=== PATIENT | male | born 1960 | race Caucasian/White ===

== ENCOUNTER 2018-09-06 18:54 | Emergency (ER) | payer BC, OTHER ==
[~2018-09-06] VITALS: Ht 180.3 cm; Wt 95.3 kg
--- NOTE | 2018-09-06 19:20 | NUR ---
Pt presented to the ER with a c/o L lower quadrant abd pain. Pt has a hx of diverticulitis. Pt stated that it is mild pain at the moment, but feels like it did when the diverticulitis flared up. Pt feels that if he waits the weekend to see his PMD it will get worse. Pt ambulated to the bathroom with a steady gait and a urine sample was obtained and sent to lab.
[2018-09-06 19:30] LABS: APPEARANCE,URINE Clear (CLEAR); BILIRUBIN,URINE Negative (NEGATIVE); BLOOD, URINE Trace-lysed Ery/uL (NEGATIVE); COLOR,URINE Yellow (YELLOW); KETONES,URINE 15 (NEGATIVE); LEUKOCYTE ESTERASE ,URINE Negative (NEGATIVE); NITRITE, URINE Negative (NEGATIVE); PROTEIN,URINE Negative (NEGATIVE); UGLUCOSE Negative (NEGATIVE); UROBILINOGEN,URINE 0.2 EU/dL (0.2)
[2018-09-06 19:36] LABS: BASOPHILS # (AUTO) 0.1 /CMM (0.0-0.2); BASOPHILS % (AUTO) 0.6 % (0.0-2.0); EOSINOPHILS % (AUTO) 1.8 % (0.0-6.0); HEMATOCRIT 48 % (39-51); LYMPHOCYTES # (AUTO) 1.8 /CMM (0.8-4.8); LYMPHOCYTES % (AUTO) 14.7 % (20.0-44.0); MEAN CORPUSCULAR HGB CONC 33 g/dl (31.0-36.0); MEAN CORPUSCULAR VOLUME 90 fL (80-96); MONOCYTES # (AUTO) 0.9 /CMM (0.1-1.30); MONOCYTES % (AUTO) 7.5 % (2.0-12.0); NEUTROPHILS # (AUTO) 9.1 /CMM (1.8-8.9); NEUTROPHILS % (AUTO) 75.4 % (43.0-81.0); PLATELET COUNT (AUTO) 272 /CMM (150-450); RED BLOOD CELL COUNT(AUTO) 5.35 MIL/uL (4.5-6.0); WHITE BLOOD COUNT (AUTO) 12.1 K/uL (4.3-11.0)
--- NOTE | 2018-09-06 19:40 | NUR ---
Pt left for CT via WC.
[2018-09-06 19:45] LABS: CALCIUM, SERUM 9.2 mg/dL (8.5-10.1); CREATININE 1.1 mg/dL (0.6-1.3); POTASSIUM 4.1 mmol/L (3.5-5.1)
[2018-09-06 19:46] LABS: WBC,URINE NONE SEEN /HPF (0-3)
[2018-09-06 19:47] LABS: BACTERIA,URINE Rare /HPF (None Seen); SQUAMOUS EPITHELIAL CELL,UR Few /HPF (None Seen)
[2018-09-06 19:50] LABS: ALBUMIN 3.9 g/dL (3.4-5.0); BILIRUBIN,DIRECT 0.2 mg/dL (0.0-0.2); BILIRUBIN,TOTAL 1.3 mg/dL (0.2-1.0); TOTAL PROTEIN, SERUM 7.6 g/dL (6.4-8.2)
--- NOTE | 2018-09-06 19:58 | NUR ---
Pt returned from CT. Pt's name is spelled incorrectly. Admitting notified and name to be corrected. Pt's name s/b Andrew.
[2018-09-06] MEDS ORDERED: AMOX/CLAVULANATE 875 MG TABLET PO ONE (21:00)
[2018-09-06] MEDS ORDERED: HYDROCODONE/APAP 10/325MG 1 EA TABLET ONE (21:00)
[2018-09-06] MEDS ORDERED: AMOX/CLAVULANATE 875 MG TABLET ONE (21:00)
--- NOTE | 2018-09-06 21:02 | NUR ---
verbal order Dr. Stanford gave a verbal order for [place] 10/325mg PO. Medication given as ordered.
--- NOTE | 2018-09-06 21:04 | NUR ---
IV removed. Catheter intact and site benign. Pressure and 4x4 applied to site. No bleeding noted. Patient discharged to home in stable condition. Written and verbal after care instructions given. Patient verbalizes understanding of instruction and Rx. Pt was instructed to take clear liquids for the first 24hrs. Pt then to advance to a bland diet. VSS. Pt stated that he was taking a taxi home. Pt ambulated out to the lobby with a steady gait.
[2018-09-06 21:07] VITALS: BP 142/85
[2018-09-06] MEDS ORDERED: HYDROCODONE/APAP 10/325MG 1 EA TABLET PO ONE (21:30)
== END 2018-09-06 21:12 | disposition home or self-care (01) ==
LOC: ER 18:58
DX: K57.92 Diverticulitis of intestine, part unspecified, without perforation or abscess without bleeding (principal); F17.200 Nicotine dependence, unspecified, uncomplicated
CPT/HCPCS: 36415; 80048-TC; 80076-TC; 81000-TC; 85025-TC